=== PATIENT | female | born 1985 | race Caucasian/White ===

== ENCOUNTER 2017-04-23 05:58 | Emergency (ER) | payer OTHER ==
[~2017-04-23] VITALS: Ht 175.3 cm; Wt 106.0 kg
[~2017-04-23 05:58] MED LIST: ACID CONTROL150 MG PO; AMOXICILLIN500 M1 PO; ANASPAZ0.125 MG SL; HYDROCODON-ACE1 EAC7; LEVAQUIN750 MG PO; NABUMETONE500 MG; NABUMETONE750 MG PO; NOHOMEMEDS; OMEPRAZOLE20 MG; PERMETHRIN118 ML; PRILOSEC20 MG PO; PROAIR HFA8.5 GM IH; ROBITUSSIN AC,T10 ML PO; TORADOL10 MG PO; VENTOLIN HFA18 GM IH
[2017-04-23 06:17] VITALS: BP 121/80
== END 2017-04-23 08:20 | disposition left against medical advice (07) ==
LOC: EME 05:58
DX: R07.9 Chest pain, unspecified (principal); M54.9 Dorsalgia, unspecified; R06.02 Shortness of breath; Z53.21 Procedure and treatment not carried out due to patient leaving prior to being seen by health care provider
CPT/HCPCS: 71046; 80053; 81003; 83690; 84702; 85027; 87502; 93005